=== PATIENT | female | born 1985 | race Caucasian/White ===

== ENCOUNTER 2016-06-15 18:21 | Emergency (ER) | payer MEDICAID, OTHER ==
[~2016-06-15] VITALS: Ht 160 cm; Wt 73.6 kg
[~2016-06-15 18:21] MED LIST: CEPH500C3 PO; HYDR-3534 PO
[2016-06-15 18:26] VITALS: BP 119/87; PULSE 95; RESP 16; TEMP 98.8; O2SAT 98
[2016-06-15] MEDS ORDERED: CELE10TA PO (18:49)
--- NOTE | 2016-06-15 18:59 | PD ---
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 She says this started Tuesday immediately after intercourse. She has been having the pain off and on since then. Last night it woke her up around 3 AM she is not aware of any fever or chills or vaginal discharge. She does say that several years ago she had an infection related to a Mirena which was removed at that time. Also been having some pain in the left side of the trapezius. Pain is quite severe at times. Her last period was about a week ago PFSH Past Medical History Blood Disorders: No Anxiety: Yes Cancer: No Cardiovascular Problems: No Diminished Hearing: No Endocrine: No Genitourinary: Yes Immune Disorder: No Kidney Stones: No Musculoskeletal: No Neurologic: No Psychiatric: No Reproductive: No Respiratory: No Renal Failure: No Tetanus Vaccination: > 5 Years Influenza Vaccination: No ?: Unknown Menopausal: No : 2 Para: 2 Past Surgical History Other Surgery: Yes (BREAST AUGMENTATION) Social History Alcohol Use: Yes (WINE ~2X WEEK) Tobacco Use: Yes (3-4 CIG DAILY) Substance Use: No Allergies-Medications (Allergen,Severity, Reaction): Coded Allergies: No Known Allergies (Verified , 06/15/16) Reported Meds & Prescriptions Reported Meds & Active Scripts Active Reported Celexa (Citalopram Hydrobromide) 10 Mg Tab Unknown Dose PO DAILY Review of Systems General / Constitutional: No: Fever, Chills Eyes: No: Diploplia HENT: No: Headaches Cardiovascular: No: Chest Pain or Discomfort Respiratory: No: Cough, Shortness of Breath Gastrointestinal: Positive: Nausea Genitourinary: Positive: Frequency, Pelvic Pain, No: Discharge, Vaginal Bleeding Musculoskeletal: No: Myalgias Psychiatric: Positive: Anxiety Physical Exam Narrative GENERAL: Well-developed female. She appears quite uncomfortable with her pain SKIN: Warm and dry. HEAD: Atraumatic. Normocephalic. EYES: Pupils equal and round. No scleral icterus. No injection or drainage. ENT: No nasal bleeding or discharge. Mucous membranes pink and moist. NECK: Trachea midline. No JVD. CARDIOVASCULAR: Regular rate and rhythm. No murmur appreciated. RESPIRATORY: No accessory muscle use. Clear to auscultation. Breath sounds equal bilaterally. GASTROINTESTINAL: Abdomen soft, non-tender, nondistended. Hepatic and splenic margins not palpable. Pelvic: There is no discharge. The os is closed. There is pain with movement of the cervix and bilateral adnexal tenderness. I do not feel any masses MUSCULOSKELETAL: No obvious deformities. No clubbing. No cyanosis. No edema. NEUROLOGICAL: Awake and alert. No obvious cranial nerve deficits. Motor grossly within normal limits. Normal speech. PSYCHIATRIC: Appropriate mood and affect; insight and judgment normal. Data Data Last Documented VS Vital Signs Date Time Temp Pulse Resp B/P Pulse Ox O2 Delivery O2 Flow Rate FiO2 06/15/16 21:02 18 06/15/16 20:45 79 106/80 98 Room Air 06/15/16 18:26 98.8 Orders Ed Urine Pregnancytest Poc (06/15/16 18:38) Urinalysis - C+S If Indicated (06/15/16 18:38) Complete Blood Count With Diff (06/15/16 18:49) Basic Metabolic Panel (Bmp) (06/15/16 18:49) Sodium Chlor 0.9% 1000 Ml Inj (Ns 1000 M (06/15/16 19:15) Ketorolac Inj (Toradol Inj) (06/15/16 19:15) Ondansetron Inj (Zofran Inj) (06/15/16 19:30) Us Pelvis Comp Fly Worker/Non-Preg (06/15/16 19:40) Gc And Chlamydia Pcr (06/15/16 19:51) Beta Hcg (Quant/Titer) (06/15/16 19:15) Hydromorphone Pf Inj (Dilaudid Pf Inj) (06/15/16 20:45) Labs Laboratory Tests Test 06/15/16 06/15/16 18:45 19:15 Urine Collection Type CLEAN CATCH Urine Color STRAW Urine Turbidity CLEAR Urine pH 6.0 Urine Specific [place] 1.005 Urine Protein NEG mg/dL Urine Glucose (UA) NEG mg/dL Urine Ketones NEG mg/dL Urine Occult Blood NEG Urine Nitrite NEG Urine Bilirubin NEG Urine Leukocyte Esterase NEG Urine WBC 0-2 /hpf Urine Squamous Epithelial 6-8 /hpf Cells Urine Bacteria RARE /hpf Microscopic Urinalysis Comment CULT NOT INDICATED White Blood Count 8.6 TH/MM3 Red Blood Count 4.41 MIL/MM3 Hemoglobin 13.4 GM/DL Hematocrit 38.8 % Mean Corpuscular Volume 88.1 FL Mean Corpuscular Hemoglobin 30.5 PG Mean Corpuscular Hemoglobin 34.6 % Concent Red Cell Distribution Width 11.5 % Platelet Count 193 TH/MM3 Mean Platelet Volume 8.7 FL Neutrophils (%) (Auto) 55.8 % Lymphocytes (%) (Auto) 36.9 % Monocytes (%) (Auto) 5.9 % Eosinophils (%) (Auto) 0.8 % Basophils (%) (Auto) 0.6 % Neutrophils # (Auto) 4.7 TH/MM3 Lymphocytes # (Auto) 3.2 TH/MM3 Monocytes # (Auto) 0.5 TH/MM3 Eosinophils # (Auto) 0.1 TH/MM3 Basophils # (Auto) 0.1 TH/MM3 CBC Comment DIFF FINAL Differential Comment Sodium Level 142 MEQ/L Potassium Level 3.7 MEQ/L Chloride Level 105 MEQ/L Carbon Dioxide Level 26.7 MEQ/L Anion Gap 10 MEQ/L Blood Urea Nitrogen 10 MG/DL Creatinine 0.51 MG/DL Estimat Glomerular Filtration 143 ML/MIN Rate Random Glucose 85 MG/DL Calcium Level 8.6 MG/DL Human Chorionic Gonadotropin, LESS THAN 1 Quant MIU/ML MDM Medical Decision Making Medical Screen Exam Complete: Yes Emergency Medical Condition: Yes Medical Record Reviewed: Yes Differential Diagnosis Differential includes cervicitis, PID, ovarian cyst, Narrative Course Exam is not suggestive of PID. There is no discharge present. White count is normal at 8000. Ultrasound shows bilateral ovarian cyst. Believe the patient' s symptoms are secondary to ovarian cyst Diagnosis Primary Impression: Ovarian cyst Qualified Code: N83.201 - Cysts of both ovaries Disposition: DISCHARGE HOME Condition: Stable Nixon Paulino MD Jun 15, 2016 18:59
[2016-06-15 19:04] LABS: BLOOD, URINE NEG (NEG); GLUCOSE,URINE NEG (NEG); KETONE, URINE NEG (NEG); NITRITE,URINE NEG (NEG)
[2016-06-15 19:08] LABS: METHOD OF COLLECTION CLEAN CATCH; URINE COLOR STRAW (YELLW/STRAW)
[2016-06-15 19:09] LABS: WBC, URINE 0-2 /hpf (0-5)
[2016-06-15 19:10] LABS: BACTERIA, URINE RARE /hpf; COMMENT (UR) CULT NOT INDICATED; CULTURE IF INDICATED CULT NOT INDICATED
[2016-06-15] MEDS ORDERED: KETOROLAC TROMETHAMINE 30 MG/ML (IVP) VIAL IV PUSH ONE (19:15)
[2016-06-15 19:19] VITALS: BP 111/70; PULSE 80; RESP 18; O2SAT 98
[2016-06-15] MEDS: SODIUM CHLOR 0.9% 1000 ML INJ 1,000 ML IV SCH ×2 (19:25→19:26)
[2016-06-15] MEDS ORDERED: ONDANSETRON HCL 4 MG/2 ML VIAL IV PUSH ONE (19:30)
[2016-06-15 19:34] LABS: AUTOMATED NEUTROPHIL # 4.7 TH/MM3 (1.8-7.7); BASOPHIL # 0.1 TH/MM3 (0-0.2); BASOPHIL % 0.6 % (0.0-2.0); EOSINOPHIL # 0.1 TH/MM3 (0-0.4); EOSINOPHIL % 0.8 % (0.0-4.0); HEMATOCRIT 38.8 % (35.0-46.0); LYMPH % 36.9 % (9.0-44.0); LYMPHOCYTE # 3.2 TH/MM3 (1.0-4.8); MEAN CELL VOLUME 88.1 FL (80.0-100.0); MEAN CORPUSCULAR HEMOGLOBIN 30.5 PG (27.0-34.0); MEAN CORPUSCULAR HGB CONC 34.6 % (32.0-36.0); MONO % 5.9 % (0.0-8.0); NEUT % 55.8 % (16.0-70.0); PLATELET COUNT 193 TH/MM3 (150-450); RED BLOOD COUNT 4.41 MIL/MM3 (4.00-5.30); RED CELL DISTRIBUTION WIDTH 11.5 % (11.6-17.2); WHITE BLOOD COUNT 8.6 TH/MM3 (4.0-11.0)
[2016-06-15 20:00] LABS: CHLORIDE 105 MEQ/L (98-107); POTASSIUM 3.7 MEQ/L (3.5-5.1); SODIUM (NA) 142 MEQ/L (136-145)
[2016-06-15 20:03] LABS: ANION GAP 10 MEQ/L (5-15); BICARBONATE 26.7 MEQ/L (21.0-32.0); BLOOD UREA NITROGEN 10 MG/DL (7-18)
[2016-06-15 20:06] LABS: GLOMERULAR FILTRATION RATE 143 ML/MIN (>89)
[2016-06-15 20:11] LABS: BETA HCG QUANT LESS THAN 1 MIU/ML (0-5)
[2016-06-15 20:45] VITALS: BP 106/80; PULSE 79; RESP 18; O2SAT 98
[2016-06-15] MEDS ORDERED: HYDROmorphone HCL PF 1 MG/ML VIAL IV PUSH ONE ×2 (20:45→21:45)
[2016-06-15 20:56] LABS: HEMO FLAGS DIFF FINAL
--- NOTE | 2016-06-15 21:01 | RADHPO ---
EXAM DATE/TIME: 06/15/2016 20:16 [facility] COMPARISON: No previous studies available for comparison. INDICATIONS : Pelvic pain. MEDICAL HISTORY : Dyspnea. Pylonephritis. SURGICAL HISTORY : Breast augmentation. ENCOUNTER: Initial ACUITY: 4-6 days PAIN SCORE: 8/10 LOCATION: Right pelvis MEASUREMENTS: UTERUS: 10.4 x 4.3 x 6.9 cm ENDOMETRIAL STRIPE: 9 mm RIGHT OVARY: 4.1 x 2.9 x 2.2 cm LEFT OVARY: 3.8 x 2.0 x 2.8 cm FINDINGS: UTERUS: The myometrium has homogeneous echotexture without mass. RIGHT OVARY: 2.3 cm right ovarian cyst is noted. LEFT OVARY: 1.3 cm left ovarian cyst is noted. MISCELLANEOUS: No free fluid. CONCLUSION: Cystic areas in both ovaries otherwise negative . Nando Browne MD FACR on June 15, 2016 at 20:59 Board Certified Radiologist. This report was verified electronically.
[2016-06-15] MEDS ORDERED: PERC7.5T13 PO (21:32)
[2016-06-15 21:44] VITALS: BP 115/73; PULSE 80; RESP 18; O2SAT 99
[2016-06-15 21:59] VITALS: RESP 18
[2016-06-15 22:53] VITALS: BP 114/71
[2016-06-15 23:36] LABS: CHLAMYDIA PCR NOT DETECTED (NOT DETECT); NEISSERIA PCR NOT DETECTED (NOT DETECT)
== END 2016-06-15 22:56 | disposition home or self-care (01) ==
LOC: PHED 18:21
DX: H05.8 Other disorders of orbit (principal); F17.210 Nicotine dependence, cigarettes, uncomplicated
CPT/HCPCS: 76856; 80048; 81001; 84702; 84703; 85025; 87491; 87591; 96361; 96374; 96375; 96376; 99284; J1170; J1885; J2405; J7030